=== PATIENT | female | born 1950 | race Caucasian/White ===

== ENCOUNTER 2022-02-22 05:19 | Emergency (ER) | payer MEDICARE, BC ==
[2022-02-22] MEDS ORDERED: Nitroglycerin 0.4 MG Tab.SL SL ONE (05:25)
[2022-02-22] MEDS: Sodium Chloride 0.9% 10 ML Syringe FLUSH PRN ×2 (05:25→05:50)
[2022-02-22] MEDS ORDERED: Aspirin 81 MG Tab.Chew PO STA (05:46)
[2022-02-22] MEDS ORDERED: Heparin Sodium/0.45% NaCl 500 ML IV SCH (05:47)
[2022-02-22] MEDS ORDERED: Nitroglycerin/D5W 25 MG/250 ML BOTTLE IV SCH (06:00)
[2022-02-22 06:03] VITALS: BP 108/75; PULSE 69
[2022-02-22] MEDS ORDERED: Heparin Sodium 5,000 Units/ML Vial IVPUSH ONE ×2 (06:05→07:16)
== END 2022-02-22 06:16 ==
LOC: FB.ED 05:19
DX: I21.4 Non-ST elevation (NSTEMI) myocardial infarction (principal); K21.9 Gastro-esophageal reflux disease without esophagitis; Z88.2 Allergy status to sulfonamides; Z79.899 Other long term (current) drug therapy
CPT/HCPCS: 36415; 71045; 80053; 83880; 84484; 85025; 85379; 85610; 85730; 93005; 96365; 99283; 99285-25; A9270-GY; J1644; J3490